=== PATIENT | female | born 1970 ===

== ENCOUNTER 2017-01-17 10:15 | Emergency (ER) | payer OTHER ==
[2017-01-17 10:21] VITALS: BMI 20.9
[2017-01-17] MEDS ORDERED: Oxycodone/Acetaminophen 5/325 mg Tab ONE (10:23)
[2017-01-17] MEDS ORDERED: Oxycodone/Acetaminophen 5/325 mg Tab PO STA (10:28)
[2017-01-17 11:11] LABS: BASO # 0.1 K/uL (0.0-0.2); BASO % 0.8 % (0.0-2.0); EOS # 0.1 K/uL (0.0-0.7); EOS % 1.1 % (0.0-4.0); HEMATOCRIT 40.1 % (34.0-47.0); LYMPH # 3.3 K/uL (1.0-4.3); LYMPH % 37.4 % (20.0-40.0); MEAN CELL VOLUME 94.5 fL (81.0-99.0); MEAN CORPUSCULAR HEMOGLOBIN 31.4 pg (27.0-31.0); MEAN CORPUSCULAR HGB CONC 33.2 g/dL (33.0-37.0); MEAN PLATELET VOLUME 9.2 fL (7.2-11.7); MONO # 0.5 K/uL (0.0-0.8); MONO % 5.4 % (0.0-10.0); NRBC % 0.1 % (0.0-2.0); RED CELL DISTRIBUTION WIDTH 13.1 % (11.5-14.5); WHITE BLOOD COUNT 8.9 K/uL (4.8-10.8)
[2017-01-17 11:18] LABS: CHLORIDE 102 mmol/L (98-107)
[2017-01-17 11:19] LABS: SODIUM 140 mmol/L (132-148)
[2017-01-17 11:21] LABS: ALB/GLOB RATIO 1.3 (1.0-2.1); AST/SGOT 43 U/L (14-36); BILIRUBIN,TOTAL 0.8 mg/dL (0.2-1.3); BLOOD UREA NITROGEN 9 mg/dL (7-17); CARBON DIOXIDE 24 mmol/L (22-30); GFR AFRICAN-AMERICAN > 60; TOTAL PROTEIN 8.2 g/dL (6.3-8.3)
[2017-01-17 11:22] LABS: ALKALINE PHOSPHATASE 106 U/L (38-126); ALT/SGPT 31 U/L (9-52); CALCIUM 9.8 mg/dl (8.6-10.4); GLUCOSE,RANDOM 83 mg/dL (65-105)
[2017-01-17 11:24] LABS: RBC URINE 19 /hpf (0-3); URINE BACTERIA OCC (<OCC); URINE BILIRUBIN NEGATIVE (NEGATIVE); URINE BLOOD NEGATIVE (NEGATIVE); URINE COLOR Straw (YELLOW); URINE GLUCOSE (UA) NORMAL (Normal); URINE KETONE NEGATIVE (NEGATIVE); URINE LEUKOCYTE ESTERASE 3+ Leu/uL (Negative); URINE PROTEIN NEGATIVE (NEGATIVE); URINE UROBILINOGEN NORMAL mg/dL (0.2-1.0); WBC URINE 3 /hpf (0-5)
--- NOTE | 2017-01-17 11:24 | RAD ---
PROCEDURE: Right Wrist Radiographs. HISTORY: R wrist twisted COMPARISON: None. FINDINGS: BONES: Normal. No fracture. JOINTS: Normal. No dislocation. SOFT TISSUES: Normal. OTHER FINDINGS: None. IMPRESSION: No acute findings related to/accounting for the clinical presentation. Concordant results with the preliminary interpretation rendered by the emergency department physician procedure.
--- NOTE | 2017-01-17 11:55 | C.PDOC ---
History Of Present Illness 46 yr old female brought in via BLS, presents to the ER with complaints of right wrist pain and lower abdominal pain, s/p being injured while at work [employer]. 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 Patient denies LOC, chest pain, SOB, nausea, vomiting, back pain, weakness or numbness. Time Seen by Provider: 01/17/17 10:27 Chief Complaint (Nursing): Upper Extremity Problem/Injury History Per: Patient History/Exam Limitations: no limitations Onset/Duration Of Symptoms: Sudden Onset ([employer]) Past Medical History Reviewed: Historical Data, Nursing Documentation, Vital Signs Vital Signs: Last Vital Signs Temp 97.6 F 01/17/17 12:33 Pulse 68 01/17/17 12:33 Resp 20 01/17/17 12:33 BP 113/75 01/17/17 12:33 Pulse Ox 98 01/17/17 12:50 - Medical History PMH: Gastritis Surgical History: Appendectomy - [facility] Procedures INSERT INDWELLING CATH (04/26/15) Family History: States: No Known Family Hx - Social History Hx Alcohol Use: No Hx Substance Use: No - Immunization History Hx Tetanus Toxoid Vaccination: No Hx Influenza Vaccination: Yes Hx Pneumococcal Vaccination: No Review Of Systems Except As Marked, All Systems Reviewed And Found Negative. Cardiovascular: Negative for: Chest Pain Respiratory: Negative for: Shortness of Breath Gastrointestinal: Positive for: Abdominal Pain (Lower abdomen ). Negative for: Nausea, Vomiting Musculoskeletal: Positive for: Hand Pain (Right wrist ). Negative for: Back Pain Neurological: Negative for: Weakness, Numbness Physical Exam - Physical Exam Appears: Well, Non-toxic, No Acute Distress Skin: Warm, Dry Head: Atraumatic, Normacephalic Oral Mucosa: Moist Neck: Normal, Normal ROM, Supple Chest: Symmetrical, No Tenderness Cardiovascular: Rhythm Regular, No Murmur Respiratory: Normal Breath Sounds, No Rales, No Rhonchi, No Stridor, No Wheezing Gastrointestinal/Abdominal: Soft, Tenderness (Lower abdomen tenderness), No Guarding, No Rebound Extremity: Tenderness (Right Hand, Wrist - Tenderness. No obvious deformity. ), Capillary Refill (<2), No Swelling Neurological/Psych: Oriented x3, Normal Speech, Normal Motor, Normal Sensation ED Course And Treatment - Laboratory Results Result Diagrams: 01/17/17 11:05 01/17/17 11:05 Lab Interpretation: Normal (ua neg.) Urine POC: Negative O2 Sat by Pulse Oximetry: 98 - Other Rad X-Ray - Right Wrist X-Ray: Viewed By Me, Read By Radiologist Interpretation: PROCEDURE: Right Wrist Radiographs. . HISTORY: R wrist twisted. COMPARISON: None. FINDINGS: BONES: Normal. No fracture. JOINTS: Normal. No dislocation. SOFT TISSUES: Normal. OTHER FINDINGS: None. IMPRESSION: No acute findings related to/accounting for the clinical presentation. . Concordant results with the preliminary interpretation rendered by the emergency department physician\CHARLIE at the conclusion of the procedure. - CT Scan/US CT - Abdomen & Pelvis Other Rad Studies (CT/US): Read By Radiologist, Radiology Report Reviewed CT/US Interpretation: IMPRESSION: Hepatomegaly. Hepatic steatosis. Probable small bilateral ovarian cysts. Moderate constipation. Reevaluation Time: 13:09 Reassessment Condition: Improved Medical Decision Making Medical Decision Making: PLAN: * CT - Abd & Pelvis * X-Ray - Right Wrist * CBC * HCG Urine * Urinalysis * Percocet PO 1305: R wrist sprain (normal films and exam) and superficial lower ab contusion , normal exam and CT Disposition Doctor Will See Patient In The: Office Counseled Patient/Family Regarding: Studies Performed, Diagnosis - Disposition Referrals: Clinic,Med Surg [Primary Care Provider] - Disposition: HOME/ ROUTINE Disposition Time: 13:10 Condition: GOOD - Clinical Impression Clinical Impression: Contusion, Right wrist sprain - Scribe Statement The provider has reviewed the documentation as recorded by the Zee Turk Provider Attestation: All medical record entries made by the Nancyibpito were at my direction and personally dictated by me. I have reviewed the chart and agree that the record accurately reflects my personal performance of the history, physical exam, medical decision making, and the department course for this patient. I have also personally directed, reviewed, and agree with the discharge instructions and disposition.
[2017-01-17] MEDS ORDERED: Iodixanol 320 MG/ML 100 ML BOTTLE IV ONE (11:56)
--- NOTE | 2017-01-17 12:47 | CT ---
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 This CT exam was performed using one or more of the following dose reduction techniques: Automated exposure control, adjustment of the mA and/or kV according to patient size, and/or use of iterative reconstruction technique. FINDINGS: LOWER THORAX: No visible consolidation, pleural effusion, or pneumothorax. LIVER: Hepatomegaly. Hypoattenuation of the liver compatible with hepatic steatosis. GALLBLADDER AND BILE DUCTS: Unremarkable. PANCREAS: Unremarkable. SPLEEN: 14 mm probable splenule. Otherwise unremarkable. ADRENALS: Unremarkable. KIDNEYS AND URETERS: The kidneys enhance symmetrically. No hydronephrosis or obstructing calculus identified. VASCULATURE: No aortic aneurysm. BOWEL: The stomach is nondistended. Lack of oral contrast limits evaluation for bowel pathology. Bowel loops appear within normal limits of caliber without evidence of obstruction. Moderate constipation. APPENDIX: The appendix is not identified. No secondary signs of acute appendicitis. PERITONEUM: No significant free fluid. No definite free air. LYMPH NODES: No bulky adenopathy appreciated. BLADDER: Unremarkable. REPRODUCTIVE: Uterus is present. Probable bilateral ovarian cysts. BONES: No acute osseous abnormality is detected. OTHER FINDINGS: None. IMPRESSION: Hepatomegaly. Hepatic steatosis. Probable small bilateral ovarian cysts. Moderate constipation.
[2017-01-17 12:50] VITALS: O2SAT 98
[2017-01-17 13:32] VITALS: BP 121/69; PULSE 71; RESP 18; TEMP 98.2
== END 2017-01-17 13:32 | disposition home or self-care (01) ==
LOC: SUPCPDRO 10:15 → C.ER 10:15
DX: S63.501A Unspecified sprain of right wrist, initial encounter (principal); S30.1XXA Contusion of abdominal wall, initial encounter; X58.XXXA Exposure to other specified factors, initial encounter; Y93.89 Activity, other specified; Y92.89 Other specified places as the place of occurrence of the external cause; Y99.0 Civilian activity done for income or pay
CPT/HCPCS: 73110; 74177; 80053; 81001; 83690; 84703; 85025; 99285; Q9967

== ENCOUNTER 2017-05-08 15:49 | Emergency (ER) | payer OTHER ==
[2017-05-08 15:49] VITALS: BMI 20.9
[2017-05-08 16:13] VITALS: TEMP 98.4
[2017-05-08 16:48] LABS: RBC URINE 107 /hpf (0-3); URINE BACTERIA RARE (<OCC); URINE BILIRUBIN NEGATIVE (NEGATIVE); URINE BLOOD 3+ (NEGATIVE); URINE COLOR Yellow (YELLOW); URINE GLUCOSE (UA) NORMAL (Normal); URINE KETONE TRACE mg/dL (NEGATIVE); URINE LEUKOCYTE ESTERASE 3+ Leu/uL (Negative); URINE PROTEIN NEGATIVE (NEGATIVE); URINE UROBILINOGEN NORMAL mg/dL (0.2-1.0); WBC URINE 335 /hpf (0-5)
--- NOTE | 2017-05-08 16:58 | C.PDOC ---
History Of Present Illness 46 year old female presents to the ED with complaints of dysuria and urgency for four days with subjective fever beginning last night and suprapubic pain today. Patient notes a history of UTIs and notes had one last April 2016. She states when voiding today she noted hematuria. Patient denies back pain, vaginal bleeding or discharge. Time Seen by Provider: 05/08/17 16:22 Chief Complaint (Nursing): Female Genitourinary History Per: Patient History/Exam Limitations: no limitations Onset/Duration Of Symptoms: Days (4 days), Worse Since (last night ) Current Symptoms Are (Timing): Still Present Quality Of Discomfort: "Pain" Associated Symptoms: Fever, Urinary Symptoms. denies: Chills, Nausea, Vomiting , Diarrhea Alleviating Factors: None Recent travel outside of the [place]: No Abnormal Vaginal Bleeding: No Past Medical History Reviewed: Historical Data, Nursing Documentation, Vital Signs Vital Signs: Last Vital Signs Temp 98.4 F 05/08/17 16:12 Pulse 86 05/08/17 17:02 Resp 18 05/08/17 17:02 BP 121/72 05/08/17 17:02 Pulse Ox 97 05/08/17 19:09 - Medical History PMH: Gastritis Surgical History: Appendectomy - knowNormal Procedures INSERT INDWELLING CATH (04/26/15) Family History: States: Unknown Family Hx - Social History Hx Alcohol Use: No Hx Substance Use: No - Immunization History Hx Tetanus Toxoid Vaccination: No Hx Influenza Vaccination: Yes Hx Pneumococcal Vaccination: No Review Of Systems Constitutional: Positive for: Fever. Negative for: Chills Cardiovascular: Negative for: Chest Pain Respiratory: Negative for: Shortness of Breath Gastrointestinal: Positive for: Abdominal Pain. Negative for: Nausea, Vomiting , Diarrhea Genitourinary: Positive for: Dysuria, Hematuria, Other (urgency). Negative for : Vaginal Discharge, Vaginal Bleeding Musculoskeletal: Negative for: Back Pain Physical Exam - Physical Exam Appears: Non-toxic, No Acute Distress Skin: Warm, Dry Head: Atraumatic Eye(s): bilateral: Normal Inspection, EOMI Oral Mucosa: Moist Neck: Supple Chest: Symmetrical, No Deformity Cardiovascular: Rhythm Regular Respiratory: Normal Breath Sounds, No Rhonchi, No Wheezing Gastrointestinal/Abdominal: Soft, Tenderness (mild suprapubic tenderness ), No Distention, No Guarding, No Rebound Back: No CVA Tenderness Extremity: Normal ROM, No Tenderness Neurological/Psych: Oriented x3, Normal Speech, Normal Cognition Gait: Steady ED Course And Treatment O2 Sat by Pulse Oximetry: 97 (room air ) Progress Note: Urine culture was performed and patient was given pyridium and cipro. Medical Decision Making Medical Decision Making: Patient with UTI symptoms. UA is consistent with acute UTI. Will treat with Cipro. Patient states she went to bathroom and was unable to urinate. Bladder scan performed shows 212 cc. Explain to patient symptoms of UTI can be urgency and frequency. Patient to be treated outpatient. She is then asking for medications for constipation. Rx given. Disposition Counseled Patient/Family Regarding: Diagnosis, Need For Followup, Rx Given - Disposition Referrals: [facility] [Outside] [facility] [Outside] Disposition: HOME/ ROUTINE Disposition Time: 16:55 Condition: STABLE Additional Instructions: Por favor, siga en la clnica para jonas evaluacin ms [place] el antibitico dos veces al da y medicamentos para el dolor aaron sea necesario Beber darcie agua... 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 - Scribe Statement The provider has reviewed the documentation as recorded by the Scribe Luly Taylor All medical record entries made by the Zee were at my direction and personally dictated by me. I have reviewed the chart and agree that the record accurately reflects my personal performance of the history, physical exam, medical decision making, and the department course for this patient. I have also personally directed, reviewed, and agree with the discharge instructions and disposition.
[2017-05-08 17:03] VITALS: BP 121/72; PULSE 86; RESP 18
[2017-05-08 17:54] VITALS: O2SAT 97
== END 2017-05-08 17:04 | disposition home or self-care (01) ==
LOC: C.ER 15:49
DX: N39.0 Urinary tract infection, site not specified (principal)